=== PATIENT | female | born 1945 | race Caucasian/White ===

== ENCOUNTER 2018-08-22 20:44 | Inpatient (IN) | payer MEDICARE, OTHER ==
[~2018-08-22] VITALS: Ht 157.5 cm; Wt 94.0 kg
[2018-08-22 21:29] LABS: CLARITY,URINE CLEAR (Clear); COLOR,URINE YELLOW (Yellow); GLUCOSE, URINE NEGATIVE (Neg); KETONES,URINE NEGATIVE (Neg); LEUKOCYTE ESTERASE ,URINE NEGATIVE (Neg); NITRITES, URINE NEGATIVE (Neg); OCCULT BLOOD,URINE TRACE-INTACT (Neg); PROTEIN,URINE NEGATIVE (Neg); UROBILINOGEN,URINE 0.2 E.U/dL (0.2-1.0)
[2018-08-22 21:36] LABS: UA COLLECTION TYPE CLN CATCH MIDSTREAM
[2018-08-22 21:37] LABS: BASOPHILS # (AUTO) 0.2 X10'3 (0-0.2); EOSINOPHILS # (AUTO) 0.1 X10'3 (0-0.9); HEMOGLOBIN 15.6 g/dl (12.0-16.0); MEAN CORPUSCULAR VOLUME 89.5 FL (78-98)
[2018-08-22 21:38] LABS: RBC,URINE 0-2 /HPF (0-2); WBC,URINE 0-4 /HPF (0-4)
[2018-08-22 21:39] LABS: BACTERIA,URINE FEW /HPF (Neg); SQUAMOUS EPITHELIAL CELL,UR FEW /LPF (FEW); YEAST FEW /HPF (NEGATIVE)
[2018-08-22 21:42] LABS: BASOPHILS % (AUTO) 2.4 % (0-1); EOSINOPHILS % (AUTO) 0.9 % (0-6); HEMATOCRIT 45.9 % (35.0-45.0); LYMPHOCYTES # (AUTO) 1.3 X10'3 (1.1-4.8); LYMPHOCYTES % (AUTO) 13.7 % (21-51); MEAN CORPUSCULAR HEMOGLOBIN 30.5 PG (27.0-31.0); MEAN CORPUSCULAR HGB CONC 34.1 % (33.0-36.5); MEAN PLATELET VOLUME 8.8 FL (7.4-10.4); MONOCYTES # (AUTO) 0.7 X10'3 (0-0.9); MONOCYTES % (AUTO) 8.1 % (2-12); NEUTROPHILS # (AUTO) 6.9 X10'3 (1.8-7.7); NEUTROPHILS % (AUTO) 74.9 % (42-75); PLATELET COUNT 241 X10'3 (140-440); RED BLOOD COUNT 5.13 X10'6 (4.20-5.60); RED CELL DISTRIBUTION WIDTH 13.1 % (11.5-14.5); WHITE BLOOD COUNT 9.2 X10'3 (4.5-11.0)
[2018-08-22 21:49] LABS: ALANINE AMINOTRANSFERASE 23 U/L (12-78); ALBUMIN 3.9 G/DL (3.4-5.0); ALKALINE PHOSPHATASE 124 IU/L (46-116); ANION GAP 11 (8-16); ASPARTATE AMINO TRANSFERASE 15 U/L (10-37); BILIRUBIN,TOTAL 0.5 MG/DL (0.1-1.0); BLOOD UREA NITROGEN 10 MG/DL (7-18); BUN/CREATININE RATIO 15.9 (6.6-38.0); CALCIUM 9.4 MG/DL (8.5-10.1); CHLORIDE 104 MMOL/L (99-107); CREATININE 0.63 MG/DL (0.40-0.90); GLUCOSE 100 MG/DL (70-104); SODIUM 140 MMOL/L (135-145); TOTAL CARBON DIOXIDE 25.3 MMOL/L (24-32); TOTAL PROTEIN 7.9 G/DL (6.4-8.2); eGFR > 90 ML/MIN
[2018-08-22 22:03] LABS: LIPASE 262 U/L (73-393)
[2018-08-22] MEDS ORDERED: famotidine/PF 10 mg/ml inj IV ONE (22:45)
[2018-08-22] MEDS ORDERED: pantoprazole 40 MG vial IV ONE (22:45)
[2018-08-22] MEDS ORDERED: morphine 4 MG/ML inj SYRINge IV ONE (22:45)
[2018-08-22] MEDS ORDERED: ondansetron/PF 4mg/2ml inj IV ONE (22:45)
[2018-08-22] MEDS ORDERED: normal saline 1000ML IV soln IVB ONE (22:45)
[2018-08-22] MEDS ORDERED: iohexol 300mg/ml 100ml inj. ONE (22:48)
[2018-08-23] MEDS ORDERED: ASPI-920 PO (01:41)
[2018-08-23] MEDS ORDERED: CHOL100053 PO (01:41)
[2018-08-23] MEDS ORDERED: CLON-527 PO (01:41)
[2018-08-23] MEDS ORDERED: acetaminophen 325mg tablet PO PRN (02:55)
[2018-08-23] MEDS ORDERED: ondansetron/PF 4mg/2ml inj IV PRN (02:55)
[2018-08-23] MEDS ORDERED: naloxone 0.4 mg/ml inj IV PRN (03:00)
[2018-08-23] MEDS ORDERED: CADD PCA waste documentation MC PRN (03:00)
[2018-08-23] MEDS: normal saline 1000ml 1,000 ML IV SCH ×2 (03:15→12:12)
[2018-08-23] MEDS ORDERED: HYDROmorphone inj. 0.5 MG/0.5 ML DISP.SYRIN IV ONE (03:25)
[2018-08-23] MEDS: HYDROmorphone/NS 1 mg/ml CADD 50 ML IV SCH ×11 (03:34→23:00)
[2018-08-23 04:20] VITALS: BP 141/61
[2018-08-23] MEDS ORDERED: metoclopramide 5 mg/ml inj IV ONE (07:50)
[2018-08-23 08:00] VITALS: BP 99/51
[2018-08-23] MEDS ORDERED: heparin, porcine 5000 units/ml vial SQ SCH (08:00)
[2018-08-23 09:38] LABS: ALANINE AMINOTRANSFERASE 15 U/L (12-78); ALBUMIN 3.2 G/DL (3.4-5.0); ALBUMIN/GLOBULIN RATIO 0.9 (1.1-1.5); ALKALINE PHOSPHATASE 101 IU/L (46-116); ANION GAP 8 (8-16); ASPARTATE AMINO TRANSFERASE 12 U/L (10-37); BILIRUBIN,TOTAL 0.6 MG/DL (0.1-1.0); BLOOD UREA NITROGEN 10 MG/DL (7-18); BUN/CREATININE RATIO 16.4 (6.6-38.0); CALCIUM 8.2 MG/DL (8.5-10.1); CHLORIDE 108 MMOL/L (99-107); CREATININE 0.61 MG/DL (0.40-0.90); GLUCOSE 101 MG/DL (70-104); POTASSIUM 3.6 MMOL/L (3.5-5.1); SODIUM 142 MMOL/L (135-145); TOTAL CARBON DIOXIDE 25.6 MMOL/L (24-32); TOTAL PROTEIN 6.6 G/DL (6.4-8.2); eGFR > 90 ML/MIN
[2018-08-23 11:00] VITALS: BP 105/49
[2018-08-23] MEDS: metoclopramide 5 mg/ml inj IV PRN (13:41)
[2018-08-23] MEDS: pantoprazole 40 MG vial IV SCH (16:04)
[2018-08-23 19:00] VITALS: BP 100/66
[2018-08-23] MEDS: clonazePAM 1mg tablet PO SCH (21:15)
[2018-08-23] MEDS: Potassium Cl inj 10 MEQ in normal saline 1000ml 1,000 ML IV SCH (21:29)
[2018-08-23] MEDS: diatr meglu/diatrizoate 30ml oral sol.-(3 dose) bottle PO SCH (21:29)
[2018-08-24] VITALS: BP 131/72
[2018-08-24] MEDS: HYDROmorphone/NS 1 mg/ml CADD 50 ML IV SCH ×12 (01:00→23:00)
[2018-08-24 06:32] LABS: BASOPHILS % (AUTO) 0.5 % (0-1); EOSINOPHILS # (AUTO) 0.1 X10'3 (0-0.9); EOSINOPHILS % (AUTO) 1.6 % (0-6); HEMATOCRIT 33.7 % (35.0-45.0); HEMOGLOBIN 11.9 g/dl (12.0-16.0); LYMPHOCYTES # (AUTO) 1.1 X10'3 (1.1-4.8); LYMPHOCYTES % (AUTO) 16.8 % (21-51); MEAN CORPUSCULAR HEMOGLOBIN 31.9 PG (27.0-31.0); MEAN CORPUSCULAR HGB CONC 35.2 % (33.0-36.5); MEAN CORPUSCULAR VOLUME 90.4 FL (78-98); MEAN PLATELET VOLUME 8.8 FL (7.4-10.4); MONOCYTES # (AUTO) 0.7 X10'3 (0-0.9); MONOCYTES % (AUTO) 10.6 % (2-12); NEUTROPHILS # (AUTO) 4.8 X10'3 (1.8-7.7); NEUTROPHILS % (AUTO) 70.5 % (42-75); PLATELET COUNT 182 X10'3 (140-440); RED BLOOD COUNT 3.73 X10'6 (4.20-5.60); RED CELL DISTRIBUTION WIDTH 13.3 % (11.5-14.5); WHITE BLOOD COUNT 6.7 X10'3 (4.5-11.0)
[2018-08-24 06:51] LABS: ALANINE AMINOTRANSFERASE 17 U/L (12-78); ALBUMIN 2.9 G/DL (3.4-5.0); ALBUMIN/GLOBULIN RATIO 0.8 (1.1-1.5); ALKALINE PHOSPHATASE 82 IU/L (46-116); ANION GAP 7 (8-16); ASPARTATE AMINO TRANSFERASE 12 U/L (10-37); BILIRUBIN,TOTAL 0.4 MG/DL (0.1-1.0); BLOOD UREA NITROGEN 9 MG/DL (7-18); BUN/CREATININE RATIO 14.3 (6.6-38.0); CALCIUM 8.4 MG/DL (8.5-10.1); CHLORIDE 107 MMOL/L (99-107); CREATININE 0.63 MG/DL (0.40-0.90); GLUCOSE 89 MG/DL (70-104); POTASSIUM 3.8 MMOL/L (3.5-5.1); SODIUM 140 MMOL/L (135-145); TOTAL CARBON DIOXIDE 25.8 MMOL/L (24-32); TOTAL PROTEIN 6.4 G/DL (6.4-8.2); eGFR > 90 ML/MIN
[2018-08-24 06:53] VITALS: BP 124/55
[2018-08-24] MEDS: Potassium Cl inj 10 MEQ in normal saline 1000ml 1,000 ML IV SCH ×3 (06:53→22:51)
[2018-08-24] MEDS ORDERED: diatr meglu/diatrizoate 30ml oral sol.-(3 dose) bottle PO SCH (07:00)
[2018-08-24] MEDS: diatr meglu/diatrizoate 30ml oral sol.-(3 dose) bottle PO SCH ×2 (07:11→09:19)
[2018-08-24] MEDS: pantoprazole 40 MG vial IV SCH (07:21)
[2018-08-24 11:43] VITALS: BP 131/69
[2018-08-24] MEDS ORDERED: magnesium hydroxide 30ml (MOM) UD suspension PO ONE (13:51)
[2018-08-24 15:21] VITALS: BP 102/44
[2018-08-24 19:00] VITALS: BP 125/55
[2018-08-24] MEDS: metoclopramide 5 mg/ml inj IV PRN (19:20)
[2018-08-24] MEDS: nystatin 15 GM powder TP SCH (20:57)
[2018-08-24] MEDS: clonazePAM 1mg tablet PO SCH (20:57)
[2018-08-25] VITALS: BP 123/63
[2018-08-25] MEDS: HYDROmorphone/NS 1 mg/ml CADD 50 ML IV SCH ×12 (01:00→23:00)
[2018-08-25 05:43] LABS: BASOPHILS % (AUTO) 0.6 % (0-1); EOSINOPHILS # (AUTO) 0.2 X10'3 (0-0.9); EOSINOPHILS % (AUTO) 3.2 % (0-6); HEMATOCRIT 33.4 % (35.0-45.0); HEMOGLOBIN 11.8 g/dl (12.0-16.0); LYMPHOCYTES # (AUTO) 1.1 X10'3 (1.1-4.8); LYMPHOCYTES % (AUTO) 19.8 % (21-51); MEAN CORPUSCULAR HGB CONC 35.2 % (33.0-36.5); MEAN PLATELET VOLUME 9.3 FL (7.4-10.4); MONOCYTES # (AUTO) 0.7 X10'3 (0-0.9); MONOCYTES % (AUTO) 11.5 % (2-12); NEUTROPHILS # (AUTO) 3.7 X10'3 (1.8-7.7); NEUTROPHILS % (AUTO) 64.9 % (42-75); PLATELET COUNT 189 X10'3 (140-440); RED BLOOD COUNT 3.67 X10'6 (4.20-5.60); RED CELL DISTRIBUTION WIDTH 13.2 % (11.5-14.5); WHITE BLOOD COUNT 5.7 X10'3 (4.5-11.0)
[2018-08-25 05:52] LABS: ALANINE AMINOTRANSFERASE 17 U/L (12-78); ALBUMIN 2.7 G/DL (3.4-5.0); ALBUMIN/GLOBULIN RATIO 0.8 (1.1-1.5); ALKALINE PHOSPHATASE 89 IU/L (46-116); ANION GAP 6 (8-16); ASPARTATE AMINO TRANSFERASE 14 U/L (10-37); BILIRUBIN,TOTAL 0.3 MG/DL (0.1-1.0); BLOOD UREA NITROGEN 10 MG/DL (7-18); BUN/CREATININE RATIO 19.6 (6.6-38.0); CALCIUM 8.2 MG/DL (8.5-10.1); CHLORIDE 109 MMOL/L (99-107); CREATININE 0.51 MG/DL (0.40-0.90); GLUCOSE 98 MG/DL (70-104); SODIUM 141 MMOL/L (135-145); TOTAL CARBON DIOXIDE 26.5 MMOL/L (24-32); eGFR > 90 ML/MIN
[2018-08-25 07:13] VITALS: BP 144/81
[2018-08-25] MEDS: nystatin 15 GM powder TP SCH ×3 (08:05→21:00)
[2018-08-25] MEDS: pantoprazole 40 MG vial IV SCH (08:05)
[2018-08-25 11:00] VITALS: BP 160/59
[2018-08-25] MEDS: Potassium Cl inj 10 MEQ in normal saline 1000ml 1,000 ML IV SCH (11:48)
[2018-08-25] MEDS: metoclopramide 5 mg/ml inj IV PRN ×2 (13:40→19:37)
[2018-08-25] MEDS: heparin, porcine 5000 units/ml vial SQ SCH (16:46)
[2018-08-25 17:01] VITALS: BP 163/68
[2018-08-25 18:00] VITALS: BP 155/76
[2018-08-25] MEDS: clonazePAM 1mg tablet PO SCH (21:29)
[2018-08-26] VITALS: BP 134/66
[2018-08-26] MEDS: heparin, porcine 5000 units/ml vial SQ SCH ×3 (00:47→15:31)
[2018-08-26] MEDS: Potassium Cl inj 10 MEQ in normal saline 1000ml 1,000 ML IV SCH ×2 (00:47→15:29)
[2018-08-26] MEDS: HYDROmorphone/NS 1 mg/ml CADD 50 ML IV SCH ×12 (01:00→23:00)
[2018-08-26 06:04] LABS: BASOPHILS % (AUTO) 0.6 % (0-1); EOSINOPHILS # (AUTO) 0.2 X10'3 (0-0.9); EOSINOPHILS % (AUTO) 2.9 % (0-6); HEMATOCRIT 33.5 % (35.0-45.0); HEMOGLOBIN 11.8 g/dl (12.0-16.0); LYMPHOCYTES % (AUTO) 19.1 % (21-51); MEAN CORPUSCULAR HEMOGLOBIN 31.5 PG (27.0-31.0); MEAN PLATELET VOLUME 8.9 FL (7.4-10.4); MONOCYTES # (AUTO) 0.6 X10'3 (0-0.9); MONOCYTES % (AUTO) 11.9 % (2-12); NEUTROPHILS # (AUTO) 3.5 X10'3 (1.8-7.7); NEUTROPHILS % (AUTO) 65.5 % (42-75); PLATELET COUNT 197 X10'3 (140-440); RED BLOOD COUNT 3.73 X10'6 (4.20-5.60); RED CELL DISTRIBUTION WIDTH 12.7 % (11.5-14.5); WHITE BLOOD COUNT 5.3 X10'3 (4.5-11.0)
[2018-08-26 06:10] LABS: ALANINE AMINOTRANSFERASE 18 U/L (12-78); ALBUMIN 2.7 G/DL (3.4-5.0); ALBUMIN/GLOBULIN RATIO 0.8 (1.1-1.5); ALKALINE PHOSPHATASE 81 IU/L (46-116); ANION GAP 6 (8-16); ASPARTATE AMINO TRANSFERASE 15 U/L (10-37); BILIRUBIN,TOTAL 0.4 MG/DL (0.1-1.0); BLOOD UREA NITROGEN 10 MG/DL (7-18); BUN/CREATININE RATIO 16.1 (6.6-38.0); CALCIUM 8.2 MG/DL (8.5-10.1); CHLORIDE 108 MMOL/L (99-107); CREATININE 0.62 MG/DL (0.40-0.90); GLUCOSE 93 MG/DL (70-104); POTASSIUM 3.9 MMOL/L (3.5-5.1); SODIUM 140 MMOL/L (135-145); TOTAL CARBON DIOXIDE 25.9 MMOL/L (24-32); TOTAL PROTEIN 6.2 G/DL (6.4-8.2); eGFR > 90 ML/MIN
[2018-08-26 07:45] VITALS: BP 154/85
[2018-08-26] MEDS: pantoprazole 40 MG vial IV SCH (08:29)
[2018-08-26] MEDS: nystatin 15 GM powder TP SCH ×3 (08:29→21:00)
[2018-08-26 12:14] VITALS: BP 143/68
[2018-08-26 18:00] VITALS: BP 167/78
[2018-08-26] MEDS: metoclopramide 5 mg/ml inj IV PRN (20:09)
[2018-08-26] MEDS: clonazePAM 1mg tablet PO SCH (20:09)
[2018-08-27] VITALS: BP 100/60
[2018-08-27] MEDS: heparin, porcine 5000 units/ml vial SQ SCH ×4 (00:39→23:56)
[2018-08-27] MEDS: HYDROmorphone/NS 1 mg/ml CADD 50 ML IV SCH ×12 (01:00→23:00)
[2018-08-27] MEDS: metoclopramide 5 mg/ml inj IV PRN (02:38)
[2018-08-27] MEDS: Potassium Cl inj 10 MEQ in normal saline 1000ml 1,000 ML IV SCH ×2 (04:32→16:49)
[2018-08-27 06:21] LABS: BASOPHILS % (AUTO) 0.9 % (0-1); EOSINOPHILS # (AUTO) 0.2 X10'3 (0-0.9); EOSINOPHILS % (AUTO) 3.2 % (0-6); HEMATOCRIT 34.1 % (35.0-45.0); LYMPHOCYTES # (AUTO) 0.8 X10'3 (1.1-4.8); LYMPHOCYTES % (AUTO) 15.4 % (21-51); MEAN CORPUSCULAR HEMOGLOBIN 31.8 PG (27.0-31.0); MEAN CORPUSCULAR HGB CONC 35.3 % (33.0-36.5); MEAN CORPUSCULAR VOLUME 90.3 FL (78-98); MONOCYTES # (AUTO) 0.5 X10'3 (0-0.9); MONOCYTES % (AUTO) 9.6 % (2-12); NEUTROPHILS # (AUTO) 3.9 X10'3 (1.8-7.7); NEUTROPHILS % (AUTO) 70.9 % (42-75); PLATELET COUNT 215 X10'3 (140-440); RED BLOOD COUNT 3.78 X10'6 (4.20-5.60); RED CELL DISTRIBUTION WIDTH 13.1 % (11.5-14.5); WHITE BLOOD COUNT 5.4 X10'3 (4.5-11.0)
[2018-08-27 07:02] LABS: ALANINE AMINOTRANSFERASE 16 U/L (12-78); ALBUMIN 2.8 G/DL (3.4-5.0); ALBUMIN/GLOBULIN RATIO 0.8 (1.1-1.5); ALKALINE PHOSPHATASE 102 IU/L (46-116); ANION GAP 9 (8-16); ASPARTATE AMINO TRANSFERASE 11 U/L (10-37); BILIRUBIN,TOTAL 0.2 MG/DL (0.1-1.0); BLOOD UREA NITROGEN 13 MG/DL (7-18); BUN/CREATININE RATIO 17.8 (6.6-38.0); CALCIUM 8.5 MG/DL (8.5-10.1); CHLORIDE 107 MMOL/L (99-107); CREATININE 0.73 MG/DL (0.40-0.90); GLUCOSE 142 MG/DL (70-104); POTASSIUM 3.9 MMOL/L (3.5-5.1); SODIUM 141 MMOL/L (135-145); TOTAL CARBON DIOXIDE 24.9 MMOL/L (24-32); TOTAL PROTEIN 6.3 G/DL (6.4-8.2); eGFR 79 ML/MIN
[2018-08-27 07:13] VITALS: BP 157/83
[2018-08-27] MEDS: pantoprazole 40 MG vial IV SCH (08:09)
[2018-08-27] MEDS: nystatin 15 GM powder TP SCH ×3 (08:19→21:00)
[2018-08-27 11:00] VITALS: BP 128/77
[2018-08-27 18:00] VITALS: BP 129/63
[2018-08-27] MEDS: clonazePAM 1mg tablet PO SCH (21:26)
[2018-08-28] VITALS: BP 138/82
[2018-08-28] MEDS: HYDROmorphone/NS 1 mg/ml CADD 50 ML IV SCH ×12 (01:00→23:00)
[2018-08-28] MEDS: Potassium Cl inj 10 MEQ in normal saline 1000ml 1,000 ML IV SCH ×2 (04:19→18:01)
[2018-08-28 06:06] LABS: BASOPHILS % (AUTO) 0.8 % (0-1); EOSINOPHILS # (AUTO) 0.2 X10'3 (0-0.9); EOSINOPHILS % (AUTO) 3.3 % (0-6); HEMATOCRIT 36.6 % (35.0-45.0); HEMOGLOBIN 12.2 g/dl (12.0-16.0); LYMPHOCYTES # (AUTO) 1.1 X10'3 (1.1-4.8); LYMPHOCYTES % (AUTO) 17.3 % (21-51); MEAN CORPUSCULAR HEMOGLOBIN 30.3 PG (27.0-31.0); MEAN CORPUSCULAR HGB CONC 33.3 % (33.0-36.5); MEAN CORPUSCULAR VOLUME 90.7 FL (78-98); MEAN PLATELET VOLUME 9.4 FL (7.4-10.4); MONOCYTES # (AUTO) 0.7 X10'3 (0-0.9); MONOCYTES % (AUTO) 10.9 % (2-12); NEUTROPHILS # (AUTO) 4.3 X10'3 (1.8-7.7); NEUTROPHILS % (AUTO) 67.7 % (42-75); PLATELET COUNT 242 X10'3 (140-440); RED BLOOD COUNT 4.03 X10'6 (4.20-5.60); RED CELL DISTRIBUTION WIDTH 13.8 % (11.5-14.5); WHITE BLOOD COUNT 6.3 X10'3 (4.5-11.0)
[2018-08-28 06:26] LABS: ALANINE AMINOTRANSFERASE 18 U/L (12-78); ALBUMIN 2.8 G/DL (3.4-5.0); ALBUMIN/GLOBULIN RATIO 0.8 (1.1-1.5); ALKALINE PHOSPHATASE 91 IU/L (46-116); ANION GAP 9 (8-16); ASPARTATE AMINO TRANSFERASE 12 U/L (10-37); BILIRUBIN,TOTAL 0.2 MG/DL (0.1-1.0); BLOOD UREA NITROGEN 8 MG/DL (7-18); CALCIUM 8.2 MG/DL (8.5-10.1); CHLORIDE 107 MMOL/L (99-107); CREATININE 0.57 MG/DL (0.40-0.90); GLUCOSE 112 MG/DL (70-104); POTASSIUM 3.8 MMOL/L (3.5-5.1); SODIUM 141 MMOL/L (135-145); TOTAL CARBON DIOXIDE 25.1 MMOL/L (24-32); TOTAL PROTEIN 6.4 G/DL (6.4-8.2); eGFR > 90 ML/MIN
[2018-08-28] MEDS: pantoprazole 40 MG vial IV SCH (07:39)
[2018-08-28] MEDS: heparin, porcine 5000 units/ml vial SQ SCH ×2 (07:49→16:44)
[2018-08-28] MEDS: nystatin 15 GM powder TP SCH ×3 (07:58→20:54)
[2018-08-28 09:22] VITALS: BP 155/66
[2018-08-28 20:00] VITALS: BP 166/63
[2018-08-28] MEDS ORDERED: nystatin 15 GM powder TP SCH (20:00)
[2018-08-28] MEDS: metoclopramide 5 mg/ml inj IV PRN (20:55)
[2018-08-28] MEDS: clonazePAM 1mg tablet PO SCH (20:55)
[2018-08-29] VITALS (21 sets, daily range): BP systolic 112–160; BP diastolic 64–85
[2018-08-29] MEDS: HYDROmorphone/NS 1 mg/ml CADD 50 ML IV SCH ×12 (01:00→23:00)
[2018-08-29] MEDS: Potassium Cl inj 10 MEQ in normal saline 1000ml 1,000 ML IV SCH (05:28)
[2018-08-29] MEDS: pantoprazole 40 MG vial IV SCH (06:59)
[2018-08-29] MEDS: nystatin 15 GM powder TP SCH ×2 (07:05→21:52)
[2018-08-29] MEDS: heparin, porcine 5000 units/ml vial SQ SCH ×3 (07:06→14:56)
[2018-08-29 08:59] LABS: PARTIAL THROMBOPLASTIN TIME 32 SECONDS (22-32); PROTHROMBIN TIME 10.2 SECONDS (9.0-12.0)
[2018-08-29] MEDS ORDERED: clindamycin phosphate 150mg/ml inj. ONE (15:54)
[2018-08-29] MEDS ORDERED: gentamicin 40 MG/1 ML inj ONE (15:54)
[2018-08-29] MEDS ORDERED: ringers solution, lacted 1,000 ML IV SCH (16:01)
[2018-08-29] MEDS ORDERED: hydrALAZINE 20mg/ml inj. IV PRN (16:05)
[2018-08-29] MEDS ORDERED: labetalol 20mg/4ml (5mg/ml) syringe IV PRN (16:05)
[2018-08-29] MEDS ORDERED: ceFOXitin 2 GM ADDvantage bag 100 ML IV ONE (16:05)
[2018-08-29] MEDS ORDERED: ondansetron/PF 4mg/2ml inj IV PRN (16:05)
[2018-08-29] MEDS ORDERED: morphine 4 MG/ML inj SYRINge IV PRN (16:05)
[2018-08-29] MEDS ORDERED: fentaNYL/PF 50MCG/1 ML 2ML syringe IV PRN (16:05)
[2018-08-29] MEDS ORDERED: sevoflurane 250ml liquid IH ONE (16:15)
[2018-08-29] MEDS ORDERED: MIDAZolam 5mg/5ml vial ONE (16:18)
[2018-08-29] MEDS ORDERED: fentaNYL /PF 50mcg/ml 5ml ampule ONE (16:18)
[2018-08-29] MEDS ORDERED: LIDOcaine 2% (20mg/ml) 5ml vial ONE (16:22)
[2018-08-29] MEDS ORDERED: propofol inj 20 ML IV ONE (16:23)
[2018-08-29] MEDS ORDERED: rocuronium 10mg/ml inj IV ONE ×3 (16:23→18:32)
[2018-08-29] MEDS ORDERED: ceFOXitin 1000 MG inj ONE (16:34)
[2018-08-29] MEDS ORDERED: hydrALAZINE 20mg/ml inj. IV ONE (17:07)
[2018-08-29] MEDS ORDERED: ondansetron/PF 4mg/2ml inj ONE (18:33)
[2018-08-29] MEDS ORDERED: dexamethasone sod phosphate 4mg/ml inj. ONE (18:33)
[2018-08-29] MEDS ORDERED: sugammadex 200mg/2ml injection IV ONE (18:37)
[2018-08-29] MEDS ORDERED: fentaNYL/PF 50MCG/1 ML 2ML syringe ONE (18:42)
[2018-08-29] MEDS: morphine 4 MG/ML inj SYRINge IV PRN ×2 (19:26→19:46)
[2018-08-29] MEDS ORDERED: naloxone 0.4 mg/ml inj IV PRN (19:55)
[2018-08-29] MEDS: metoclopramide 5 mg/ml inj IV SCH (19:59)
[2018-08-29] MEDS: fentaNYL/PF 50MCG/1 ML 2ML syringe IV PRN ×2 (20:06→20:21)
[2018-08-29] MEDS ORDERED: ketorolac trometh. 30mg/ml inj. IV ONE (20:25)
[2018-08-29] MEDS ORDERED: acetaminophen 1,000mg/100ml IV 100 ML IV ONE (20:25)
[2018-08-29] MEDS: clonazePAM 1mg tablet PO SCH (21:00)
[2018-08-29] MEDS ORDERED: HYDROmorphone/NS 1 mg/ml CADD 50 ML IV SCH (21:00)
[2018-08-29] MEDS: ceFOXitin 2 GM ADDvantage bag 100 ML IV SCH (21:52)
[2018-08-30] VITALS: BP 131/85
[2018-08-30 00:45] VITALS: BP 139/70
[2018-08-30] MEDS: Potassium Cl inj 10 MEQ in normal saline 1000ml 1,000 ML IV SCH ×2 (00:54→14:41)
[2018-08-30] MEDS: HYDROmorphone/NS 1 mg/ml CADD 50 ML IV SCH ×12 (01:00→23:00)
[2018-08-30] MEDS: heparin, porcine 5000 units/ml vial SQ SCH ×4 (04:00→16:45)
[2018-08-30] MEDS: ceFOXitin 2 GM ADDvantage bag 100 ML IV SCH ×2 (04:00→08:59)
[2018-08-30] MEDS: metoclopramide 5 mg/ml inj IV SCH ×4 (04:02→20:53)
[2018-08-30 06:00] LABS: ALBUMIN 2.8 G/DL (3.4-5.0); ANION GAP 15 (8-16); BLOOD UREA NITROGEN 12 MG/DL (7-18); BUN/CREATININE RATIO 11.1 (6.6-38.0); CALCIUM 8.2 MG/DL (8.5-10.1); CHLORIDE 105 MMOL/L (99-107); CREATININE 1.08 MG/DL (0.40-0.90); GLUCOSE 135 MG/DL (70-104); POTASSIUM 4.9 MMOL/L (3.5-5.1); SODIUM 140 MMOL/L (135-145); TOTAL CARBON DIOXIDE 19.8 MMOL/L (24-32); eGFR 50 ML/MIN
[2018-08-30 07:18] VITALS: BP 120/79
[2018-08-30] MEDS: pantoprazole 40 MG vial IV SCH (08:57)
[2018-08-30] MEDS: nystatin 15 GM powder TP SCH ×2 (09:16→20:54)
[2018-08-30 11:25] VITALS: BP 131/79
[2018-08-30] MEDS ORDERED: HYDROmorphone/NS 1 mg/ml CADD 50 ML IV SCH (15:00)
[2018-08-30] MEDS: proCHLORperazine 10 MG/2 ml inj IV PRN (17:16)
[2018-08-30 17:21] LABS: BASOPHILS % (AUTO) 0.2 % (0-1); EOSINOPHILS # (AUTO) 0.1 X10'3 (0-0.9); HEMATOCRIT 35.3 % (35.0-45.0); HEMOGLOBIN 11.8 g/dl (12.0-16.0); LYMPHOCYTES # (AUTO) 0.5 X10'3 (1.1-4.8); LYMPHOCYTES % (AUTO) 3.4 % (21-51); MEAN CORPUSCULAR HEMOGLOBIN 30.5 PG (27.0-31.0); MEAN CORPUSCULAR HGB CONC 33.5 % (33.0-36.5); MEAN PLATELET VOLUME 8.4 FL (7.4-10.4); MONOCYTES # (AUTO) 0.8 X10'3 (0-0.9); MONOCYTES % (AUTO) 5.8 % (2-12); NEUTROPHILS % (AUTO) 89.6 % (42-75); PLATELET COUNT 297 X10'3 (140-440); RED BLOOD COUNT 3.88 X10'6 (4.20-5.60); RED CELL DISTRIBUTION WIDTH 14.3 % (11.5-14.5); WHITE BLOOD COUNT 14.5 X10'3 (4.5-11.0)
[2018-08-30] MEDS: CADD PCA waste documentation MC PRN (17:32)
[2018-08-30 18:40] VITALS: BP 118/61
[2018-08-30] MEDS: clonazePAM 1mg tablet PO SCH (20:53)
[2018-08-31] VITALS: BP 135/80
[2018-08-31] MEDS: heparin, porcine 5000 units/ml vial SQ SCH ×4 (00:57→23:13)
[2018-08-31] MEDS: HYDROmorphone/NS 1 mg/ml CADD 50 ML IV SCH ×12 (01:00→23:00)
[2018-08-31] MEDS: Potassium Cl inj 10 MEQ in normal saline 1000ml 1,000 ML IV SCH ×2 (02:29→15:43)
[2018-08-31] MEDS: metoclopramide 5 mg/ml inj IV SCH ×4 (02:29→19:16)
[2018-08-31 06:25] LABS: ALBUMIN 2.5 G/DL (3.4-5.0); ANION GAP 8 (8-16); BLOOD UREA NITROGEN 13 MG/DL (7-18); BUN/CREATININE RATIO 21.3 (6.6-38.0); CALCIUM 8.2 MG/DL (8.5-10.1); CHLORIDE 107 MMOL/L (99-107); CREATININE 0.61 MG/DL (0.40-0.90); GLUCOSE 99 MG/DL (70-104); POTASSIUM 4.1 MMOL/L (3.5-5.1); SODIUM 141 MMOL/L (135-145); eGFR > 90 ML/MIN
[2018-08-31 06:28] LABS: BASOPHILS % (AUTO) 0.1 % (0-1); EOSINOPHILS # (AUTO) 0.1 X10'3 (0-0.9); HEMATOCRIT 32.3 % (35.0-45.0); HEMOGLOBIN 10.6 g/dl (12.0-16.0); LYMPHOCYTES # (AUTO) 0.6 X10'3 (1.1-4.8); LYMPHOCYTES % (AUTO) 4.4 % (21-51); MEAN CORPUSCULAR HGB CONC 32.8 % (33.0-36.5); MEAN CORPUSCULAR VOLUME 91.4 FL (78-98); MEAN PLATELET VOLUME 8.6 FL (7.4-10.4); MONOCYTES % (AUTO) 7.9 % (2-12); NEUTROPHILS # (AUTO) 11.4 X10'3 (1.8-7.7); NEUTROPHILS % (AUTO) 86.6 % (42-75); PLATELET COUNT 280 X10'3 (140-440); RED BLOOD COUNT 3.53 X10'6 (4.20-5.60); RED CELL DISTRIBUTION WIDTH 14.6 % (11.5-14.5); WHITE BLOOD COUNT 13.1 X10'3 (4.5-11.0)
[2018-08-31] MEDS: pantoprazole 40 MG vial IV SCH (07:21)
[2018-08-31] MEDS: nystatin 15 GM powder TP SCH ×2 (07:22→19:27)
[2018-08-31 07:35] VITALS: BP 139/84
[2018-08-31 12:00] VITALS: BP 153/86
[2018-08-31] MEDS ORDERED: nitroGLYCERIN 0.4mg SUBLingual tab SL ONE (16:53)
[2018-08-31] MEDS ORDERED: LORazepam 2 mg/ml vial IV ONE (17:05)
[2018-08-31] MEDS ORDERED: nitroGLYCERIN 0.4mg SUBLingual tab SL PRN (17:15)
[2018-08-31 20:00] VITALS: BP 151/78
[2018-08-31] MEDS: clonazePAM 1mg tablet PO SCH (21:30)
[2018-09-01] VITALS (9 sets, daily range): BP systolic 146–199; BP diastolic 75–120
[2018-09-01] MEDS: HYDROmorphone/NS 1 mg/ml CADD 50 ML IV SCH ×12 (01:00→23:00)
[2018-09-01 01:42] LABS: ALBUMIN 2.4 G/DL (3.4-5.0); ANION GAP 12 (8-16); BLOOD UREA NITROGEN 9 MG/DL (7-18); BUN/CREATININE RATIO 14.5 (6.6-38.0); CALCIUM 8.5 MG/DL (8.5-10.1); CHLORIDE 104 MMOL/L (99-107); CREATININE 0.62 MG/DL (0.40-0.90); GLUCOSE 102 MG/DL (70-104); POTASSIUM 3.7 MMOL/L (3.5-5.1); SODIUM 140 MMOL/L (135-145); TOTAL CARBON DIOXIDE 23.9 MMOL/L (24-32); TROPONIN I < 0.04 NG/ML (0.0-0.05); eGFR > 90 ML/MIN
[2018-09-01] MEDS: hydrALAZINE 20mg/ml inj. IV PRN (02:22)
[2018-09-01] MEDS: metoclopramide 5 mg/ml inj IV SCH ×4 (02:22→20:44)
[2018-09-01] MEDS: Potassium Cl inj 10 MEQ in normal saline 1000ml 1,000 ML IV SCH ×3 (03:23→20:44)
[2018-09-01 06:17] LABS: BASOPHILS % (AUTO) 0 % (0-1); EOSINOPHILS % (AUTO) 0 % (0-6); HEMATOCRIT 32.7 % (35.0-45.0); HEMOGLOBIN 10.8 g/dl (12.0-16.0); LYMPHOCYTES # (AUTO) 0.7 X10'3 (1.1-4.8); LYMPHOCYTES % (AUTO) 5.5 % (21-51); MEAN CORPUSCULAR HEMOGLOBIN 30.1 PG (27.0-31.0); MEAN CORPUSCULAR VOLUME 91.2 FL (78-98); MEAN PLATELET VOLUME 8.7 FL (7.4-10.4); MONOCYTES # (AUTO) 0.9 X10'3 (0-0.9); MONOCYTES % (AUTO) 7.5 % (2-12); NEUTROPHILS # (AUTO) 10.9 X10'3 (1.8-7.7); PLATELET COUNT 303 X10'3 (140-440); RED BLOOD COUNT 3.58 X10'6 (4.20-5.60); RED CELL DISTRIBUTION WIDTH 14.3 % (11.5-14.5); WHITE BLOOD COUNT 12.6 X10'3 (4.5-11.0)
[2018-09-01 06:51] LABS: PARTIAL THROMBOPLASTIN TIME 37 SECONDS (22-32); PROTHROMBIN TIME 10.5 SECONDS (9.0-12.0)
[2018-09-01] MEDS: pantoprazole 40 MG vial IV SCH (07:48)
[2018-09-01] MEDS: heparin, porcine 5000 units/ml vial SQ SCH ×2 (07:49→16:32)
[2018-09-01] MEDS: nystatin 15 GM powder TP SCH ×2 (07:49→20:00)
[2018-09-01] MEDS: clonazePAM 1mg tablet PO SCH (20:44)
[2018-09-02] VITALS: BP 167/83
[2018-09-02] MEDS: HYDROmorphone/NS 1 mg/ml CADD 50 ML IV SCH ×12 (00:59→23:00)
[2018-09-02] MEDS: metoclopramide 5 mg/ml inj IV SCH ×4 (01:33→20:51)
[2018-09-02] MEDS: heparin, porcine 5000 units/ml vial SQ SCH ×3 (03:57→16:00)
[2018-09-02 06:05] LABS: BASOPHILS % (AUTO) 0.5 % (0-1); EOSINOPHILS % (AUTO) 0.6 % (0-6); HEMATOCRIT 30.4 % (35.0-45.0); HEMOGLOBIN 10.2 g/dl (12.0-16.0); LYMPHOCYTES # (AUTO) 0.7 X10'3 (1.1-4.8); LYMPHOCYTES % (AUTO) 8.8 % (21-51); MEAN CORPUSCULAR HEMOGLOBIN 30.5 PG (27.0-31.0); MEAN CORPUSCULAR HGB CONC 33.7 % (33.0-36.5); MEAN CORPUSCULAR VOLUME 90.4 FL (78-98); MEAN PLATELET VOLUME 8.5 FL (7.4-10.4); MONOCYTES # (AUTO) 0.7 X10'3 (0-0.9); MONOCYTES % (AUTO) 8.6 % (2-12); NEUTROPHILS # (AUTO) 6.7 X10'3 (1.8-7.7); NEUTROPHILS % (AUTO) 81.5 % (42-75); PLATELET COUNT 286 X10'3 (140-440); RED BLOOD COUNT 3.36 X10'6 (4.20-5.60); RED CELL DISTRIBUTION WIDTH 13.8 % (11.5-14.5); WHITE BLOOD COUNT 8.2 X10'3 (4.5-11.0)
[2018-09-02 06:31] LABS: ALBUMIN 2.2 G/DL (3.4-5.0); ANION GAP 10 (8-16); BLOOD UREA NITROGEN 8 MG/DL (7-18); BUN/CREATININE RATIO 16.7 (6.6-38.0); CALCIUM 8.3 MG/DL (8.5-10.1); CHLORIDE 105 MMOL/L (99-107); CREATININE 0.48 MG/DL (0.40-0.90); GLUCOSE 93 MG/DL (70-104); POTASSIUM 3.4 MMOL/L (3.5-5.1); SODIUM 142 MMOL/L (135-145); TOTAL CARBON DIOXIDE 26.9 MMOL/L (24-32); eGFR > 90 ML/MIN
[2018-09-02 08:00] VITALS: BP 173/83
[2018-09-02] MEDS: pantoprazole 40 MG vial IV SCH (08:21)
[2018-09-02] MEDS: nystatin 15 GM powder TP SCH ×2 (08:22→21:00)
[2018-09-02] MEDS: Potassium Cl inj 10 MEQ in normal saline 1000ml 1,000 ML IV SCH ×2 (08:22→20:53)
[2018-09-02 10:58] VITALS: BP 152/70
[2018-09-02 11:00] VITALS: BP 154/81
[2018-09-02] MEDS ORDERED: midazolam 2 mg/2 ml injection IV PRN (15:00)
[2018-09-02] MEDS ORDERED: LIDOcaine 1%/PF 5ML 10 MG/ML VIAL SQ ONE (15:00)
[2018-09-02] MEDS ORDERED: fentaNYL/PF 50MCG/1 ML 2ML syringe IV PRN (15:00)
[2018-09-02] MEDS ORDERED: midazolam 2 mg/2 ml injection ONE (15:21)
[2018-09-02] MEDS ORDERED: fentaNYL/PF 50MCG/1 ML 2ML syringe ONE (15:21)
[2018-09-02 20:40] VITALS: BP 162/78
[2018-09-02] MEDS: clonazePAM 1mg tablet PO SCH (20:57)
[2018-09-02] MEDS: hydrALAZINE 20mg/ml inj. IV PRN (20:57)
[2018-09-02 22:00] VITALS: BP 158/82
[2018-09-03] VITALS (7 sets, daily range): BP systolic 144–179; BP diastolic 74–89
[2018-09-03] MEDS: heparin, porcine 5000 units/ml vial SQ SCH ×3 (00:57→16:20)
[2018-09-03] MEDS: HYDROmorphone/NS 1 mg/ml CADD 50 ML IV SCH ×5 (01:00→09:00)
[2018-09-03] MEDS: metoclopramide 5 mg/ml inj IV SCH ×2 (02:37→08:02)
[2018-09-03] MEDS: hydrALAZINE 20mg/ml inj. IV PRN ×2 (02:53→12:56)
[2018-09-03] MEDS ORDERED: bisacodyl 10mg suppository rectal RC PRN (07:40)
[2018-09-03] MEDS: nystatin 15 GM powder TP SCH (08:00)
[2018-09-03] MEDS: pantoprazole 40 MG vial IV SCH (08:03)
[2018-09-03 10:58] LABS: BASOPHILS % (AUTO) 0.2 % (0-1); EOSINOPHILS # (AUTO) 0.1 X10'3 (0-0.9); HEMATOCRIT 33.5 % (35.0-45.0); HEMOGLOBIN 11.2 g/dl (12.0-16.0); LYMPHOCYTES # (AUTO) 0.6 X10'3 (1.1-4.8); LYMPHOCYTES % (AUTO) 8.6 % (21-51); MEAN CORPUSCULAR HGB CONC 33.3 % (33.0-36.5); MEAN CORPUSCULAR VOLUME 90.2 FL (78-98); MEAN PLATELET VOLUME 8.5 FL (7.4-10.4); MONOCYTES # (AUTO) 0.8 X10'3 (0-0.9); MONOCYTES % (AUTO) 10.5 % (2-12); NEUTROPHILS # (AUTO) 5.8 X10'3 (1.8-7.7); NEUTROPHILS % (AUTO) 79.7 % (42-75); PLATELET COUNT 328 X10'3 (140-440); RED BLOOD COUNT 3.71 X10'6 (4.20-5.60); RED CELL DISTRIBUTION WIDTH 14.1 % (11.5-14.5); WHITE BLOOD COUNT 7.3 X10'3 (4.5-11.0)
[2018-09-03 11:15] LABS: ALBUMIN 2.3 G/DL (3.4-5.0); ANION GAP 12 (8-16); BLOOD UREA NITROGEN 7 MG/DL (7-18); BUN/CREATININE RATIO 14.3 (6.6-38.0); CALCIUM 8.3 MG/DL (8.5-10.1); CHLORIDE 103 MMOL/L (99-107); CREATININE 0.49 MG/DL (0.40-0.90); GLUCOSE 109 MG/DL (70-104); SODIUM 142 MMOL/L (135-145); TOTAL CARBON DIOXIDE 26.8 MMOL/L (24-32); eGFR > 90 ML/MIN
[2018-09-03] MEDS ORDERED: magnesium 4gm in 100ml NS 100 ML IV PRN (11:45)
[2018-09-03] MEDS ORDERED: magnesium 1gm/100ml D5W IVPB 100 ML IV PRN (11:45)
[2018-09-03] MEDS ORDERED: magnesium Cl slow-release 64mg tablet PO PRN (11:45)
[2018-09-03] MEDS ORDERED: potassium Cl 40MEQ/NS 500ml 500 ML IV PRN ×2 (11:45)
[2018-09-03] MEDS: CADD PCA waste documentation MC PRN (12:47)
[2018-09-03] MEDS: potassium Cl 20 mEq SR tablet PO PRN ×2 (16:21→21:28)
[2018-09-03] MEDS: ketorolac tromethamine 15mg/ml inj. IV PRN (17:24)
[2018-09-03] MEDS: clonazePAM 1mg tablet PO SCH (21:05)
[2018-09-04] VITALS: BP 145/78
[2018-09-04] MEDS: heparin, porcine 5000 units/ml vial SQ SCH ×4 (00:43→23:58)
[2018-09-04] MEDS: ketorolac tromethamine 15mg/ml inj. IV PRN ×3 (00:46→19:42)
[2018-09-04] MEDS: potassium Cl 20 mEq SR tablet PO PRN (01:39)
[2018-09-04 07:42] VITALS: BP 162/74
[2018-09-04] MEDS: pantoprazole 40 MG vial IV SCH (08:55)
[2018-09-04 09:04] VITALS: BP 147/91
[2018-09-04 12:47] VITALS: BP 161/78
[2018-09-04] MEDS: proCHLORperazine 10 MG/2 ml inj IV PRN ×2 (13:22→19:47)
[2018-09-04 19:50] VITALS: BP 170/82
[2018-09-04] MEDS: clonazePAM 1mg tablet PO SCH (22:06)
[2018-09-04 23:40] VITALS: BP 187/79
[2018-09-05 00:10] VITALS: BP 159/79
[2018-09-05] MEDS: ketorolac tromethamine 15mg/ml inj. IV PRN ×3 (01:45→19:43)
[2018-09-05] MEDS: proCHLORperazine 10 MG/2 ml inj IV PRN ×2 (01:53→08:58)
[2018-09-05 07:00] VITALS: BP 147/59
[2018-09-05 07:02] LABS: MAGNESIUM 1.8 MG/DL (1.5-2.4); POTASSIUM 3.3 MMOL/L (3.5-5.1)
[2018-09-05] MEDS: pantoprazole 40 MG vial IV SCH (07:14)
[2018-09-05] MEDS: heparin, porcine 5000 units/ml vial SQ SCH ×2 (07:15→16:29)
[2018-09-05 12:00] VITALS: BP 160/73
[2018-09-05] MEDS ORDERED: HYDROcodone/acetaminophen 10/325mg tab PO PRN (16:15)
[2018-09-05] MEDS: HYDROcodone/acetaminophen 10/325mg tab PO PRN ×2 (16:29→21:31)
[2018-09-05] MEDS: potassium Cl 20 mEq SR tablet PO PRN ×2 (17:14→21:28)
[2018-09-05] MEDS: clonazePAM 1mg tablet PO SCH (19:47)
[2018-09-05 20:00] VITALS: BP 167/72
[2018-09-05] MEDS ORDERED: magnesium hydroxide 30ml (MOM) UD suspension PO ONE (20:00)
[2018-09-05 21:30] VITALS: BP 156/77
[2018-09-06] VITALS: BP 147/66
[2018-09-06] MEDS: heparin, porcine 5000 units/ml vial SQ SCH ×2 (00:52→08:11)
[2018-09-06] MEDS: HYDROcodone/acetaminophen 10/325mg tab PO PRN ×2 (05:24→12:14)
[2018-09-06 07:00] VITALS: BP 163/64
[2018-09-06] MEDS: pantoprazole 40 MG vial IV SCH (08:11)
[2018-09-06 11:36] VITALS: BP 140/66
[2018-09-06] MEDS ORDERED: HYDR-4383 PO (12:26)
== END 2018-09-06 14:10 | disposition home or self-care (01) | DRG 981 ==
LOC: ER 20:45 → ED HOLD 08-23 02:55 → EDBEDREQ 08-23 03:39 → SUR 3N 08-23 04:11 → PAS IN 08-29 18:01 → SUR 3N 08-29 21:00
PROVIDERS: ADMIT Internal Medicine; ATTEND Internal Medicine
PROC: BW211ZZ Computerized Tomography (CT Scan) of Abdomen and Pelvis using Low Osmolar Contrast (ICD-10-PCS; 2018-08-22)
PROC: 0FBG0ZZ Excision of Pancreas, Open Approach (ICD-10-PCS; principal; 2018-08-29 16:20)
DX: D37.8 Neoplasm of uncertain behavior of other specified digestive organs (principal); E43 Unspecified severe protein-calorie malnutrition; K56.7 Ileus, unspecified; F17.210 Nicotine dependence, cigarettes, uncomplicated; D35.00 Benign neoplasm of unspecified adrenal gland; D64.9 Anemia, unspecified; E87.6 Hypokalemia; G14 Postpolio syndrome; G83.9 Paralytic syndrome, unspecified; G40.909 Epilepsy, unspecified, not intractable, without status epilepticus; K21.9 Gastro-esophageal reflux disease without esophagitis; Z88.8 Allergy status to other drugs, medicaments and biological substances; Z79.899 Other long term (current) drug therapy; Z79.82 Long term (current) use of aspirin; Z86.12 Personal history of poliomyelitis; Z68.37 Body mass index [BMI] 37.0-37.9, adult
CPT/HCPCS: 36415; 71045; 74176; 74177; 80048; 80053; 81001; 82378; 82948; 83690; 83735; 83835; 84132; 84484; 85025; 85610; 85730; 86301; 86304; 86885; 86900; 86901; 87070; 88305; 88313; 88331; 88341; 88342; 93005; 93971; 94760; 96361; 96374; 96375; 97110; 97116; 97161; 97530; 99285; A6253; A6255; A7000; C1758; C9113; C9399; J0131; J0360; J0694; J0780; J1100; J1170; J1580; J1644; J1885; J2001; J2060; J2250; J2270; J2405; J2704; J2765; J3010; J3480; J3490; J7030; J7120; Q9963; Q9967